=== PATIENT | female | born 1960 ===

== ENCOUNTER 2023-10-23 12:16 | Emergency (ER) | payer MEDICARE, MEDICAID, SELFPAY ==
[2023-10-23 12:21] VITALS: BP 209/102; PULSE 92; O2SAT 98
[2023-10-23 12:26] VITALS: BP 175/71; PULSE 88; RESP 16; O2SAT 100; BMI 29.2
--- NOTE | 2023-10-23 12:53 | ED_ITS ---
HPI - Female Genitourinary General Chief complaint: Urogenital-Female Stated complaint: ? UTI,REFUSING MEDS FROM Time Seen by Provider: 10/23/23 12:28 Source: patient Mode of arrival: EMS History of Present Illness HPI Narrative: This is 8 years old of female sent here by [facility] because she is refusing to take antibiotic for UTI. No reported fever no reported vomiting no reported hypotension no tachycardia. Patient is an admission admit of is on a Section 12 MD elicited complaint: UTI Pertinent past history: recurrent UTIs Onset (ago): day(s) (2) Severity: mild Female Urogenital Radiation: Non-Radiating Urinary symptoms: Dysuria Exacerbating factors: urination Relieving factors: none Associated symptoms: denies other symptoms Related Data Allergies Allergy/AdvReac Type Severity Reaction Status Date / Time Penicillins Allergy Unknown Verified 10/23/23 12:30 Sulfa (Sulfonamide Allergy Unknown Verified 10/23/23 12:30 Antibiotics) Review of Systems 2 Constitutional: Constitutional: Reports no additional constitutional complaints Musculoskeletal: Musculoskeletal: Reports no additional musculoskeletal complaints [facility] Past Medical History [facility] Narrative: psycosis,UTI Social History Social History Smoked in Last 30 Days: No Use of substances other than those prescribed or required for medical reasons: No Advance Directives: No Advance Directives Information Provided: No Do you have a plan to hurt others: No Plan Physical Exam 2 Vital Signs: Vital Signs: Last Vital Signs Temp 98.7 F 10/23/23 15:26 Pulse 107 H 10/23/23 15:26 Resp 17 10/23/23 15:26 BP 188/84 H 10/23/23 15:26 Pulse Ox 99 10/23/23 15:26 O2 Del Method Room Air 10/23/23 15:26 BMI result Body Mass Index 29.2 Const: General: cooperative, comfortable and no acute distress Nutritional Appearance: average body habitus Orientation/consciousness: patient oriented x3 Limitations: no limitations HEENT: Head: Yes normal to inspection General nose exam: Normal external nose present Mouth: Normal oral and palatal mucosa present Neck: Neck: Yes normal visual inspection Chest: Chest palpation & inspection: normal inspection of the chest Resp: Effort & Inspection: normal respiratory effort Auscultation: clear to auscultation bilaterally Cardio: Jugular venous distension: no JVD Rate: regular rate Rhythm: r egular rhythm GI: Inspection: Yes normal to inspection Palpation (GI): Soft to palpation, not firm, nontender and no guarding Percussion: Yes normal to percussion A uscultation: normal bowel sounds Skin: General skin exam: no rashes or lesions noted and elasticity normal L esions: no lesions Rashes: no rashes Neuro: General: patient oriented x3 Extrem: General: Yes normal to inspection Course Reevaluation(s) Reevaluation #1: Urine reviewed with the patient she does have 21-50 WBC but negative nitrate, but she has a normal white count she is afebrile nontoxic not tachycardic. Patient would like wait for the results of the culture before starting antibiotic I think it is reasonable because she had multiple prior UTI she may have an organism resistant. At this point will send her back to me Raymond I discussed the case also with the protective services case worker Génesis,who will follow the urinary culture in the next couple of days. Patient does not meet the criteria for IV antibiotic at this point again afebrile no toxic normal white count no vomiting negative nitrates in the urine she may or not have UTI Time: 14:48 Medical Decision Making Medical Decision Making MDM Narrative: Signed by me reveals a because refuse to take antibiotic for possible UTI will check UA labs VSS Differential Diagnosis Differential Diagnoses: The differential diagnosis associated with the presentation includes Pyelonephritis/UTIs/sepsis Admission/Observation Consideration of admission/observation: Escalation of care including admission/observation considered Lab Data [facility] Lab Attestation statement: I reviewed the patient's lab results. 10/23/23 13:19 10/23/23 13:19 Labs: Lab Results 10/23/23 10/23/23 Range/Units 12:46 13:19 WBC 7.1 (4.8-10.8) X10*3/uL RBC 4.34 (4.20-5.50) X10*6/uL Hgb 13.0 (12.0-16.0) g/dl Hct 36.1 L (37.0-47.0) % MCV 83.2 (80.0-98.0) fL MCH 30.0 (27.0-33.0) pg MCHC 36.0 H (31.0-35.0) g/dl RDW 12.3 (11.0-16.0) % Plt Count 327 (160-400) X10*3/uL MPV 11.1 (9.4-12.3) fL Immature Gran % (Auto) 0.8 H (0.0-0.4) % Neut % (Auto) 65.1 (45-73) % Lymph % (Auto) 23.1 (20-40) % [place] % (Auto) 7.5 (2-11) % Eos % (Auto) 2.4 (0-4) % Baso % (Auto) 1.1 (0-2) % Lymph # (Auto) 1.6 (1.2-4.9) X10*3/uL [place] # (Auto) 0.5 (0.1-1.2) X10*3/uL Eos # (Auto) 0.2 (0.0-0.4) X10*3/uL Baso # (Auto) 0.1 (0.0-0.2) X10*3/uL Abs Immat Gran (auto) 0.06 H (0.00-0.03) X10*3/uL Absolute Neuts (auto) 4.6 (2.0-8.3) x10*3/uL Absolute Nucleated RBC 0.020 H (0.0-0.012) X10*3/uL Nucleated RBC % (auto) 0.3 H (0.0-0.2) /100WBC Smear Tech's Comments VERIFIED Sodium 143 (135-145) mmol/L Potassium 4.4 (3.3-5.1) mmol/L Chloride 107 (96-108) mmol/L Carbon Dioxide 26 (22-29) mmol/L Anion Gap 14 (12-20) BUN 29 H (9-16) mg/dL Creatinine 0.74 (0.5-1.4) mg/dL Estim Creat Clear Calc 81.2 Estimated GFR > 60 Random Glucose 122 H (60-115) mg/dL Calcium 10.1 (8.4-10.2) mg/dL Urine Color Yellow Urine Appearance Clear Urine pH 8.5 (5.0-9.0) Ur Specific [place] 1.010 (1.005-1.025) Urine Protein Negative (Neg-Trace) mg/dL Urine Glucose (UA) Negative (Negative) mg/dL Urine Ketones Negative (Negative) mg/dL Urine Blood Trace H (Negative) Urine Nitrite Negative (Negative) Ur Leukocyte Esterase Large (3+) H (Negative) Urine RBC 3-5 H (0-2) /HPF Urine WBC 21-50 H (0-5) /HPF Ur Squamous Epith Cells 0-2 (0-2) /HPF Urine Bacteria Trace (None Seen) Hyaline Casts 0-2 (0-2) /LPF Discharge Plan Discharge Clinical Impression: Dysuria Patient Disposition: Xfer Psychiatric Hosp Instructions: Dysuria (ED) Additional Instructions: We discussed with you the possibility of empiric antibiotic therapy for possible UTI the urine today shows a few white cell but you have a normal white count you do not have any fever you do not have any evidence of systemic infection you have no fever. You want wait for the culture which I think is very reasonable, we sent urinary culture and will [place] to follow-up the culture, also our case me check will follow-up with the culture if culture positive we will send antibiotic for you Print Language: Swedish
[2023-10-23 13:00] LABS: Appearance Urine Clear; Color Urine Yellow; Glucose Urine UA Negative (Negative); Leukocyte Esterase Urine Large (3+) (Negative); Nitrite Urine Negative (Negative); PH 8.5 (5.0-9.0); UMIC TRIGGER UACC YES; Urine Blood Trace (Negative); Urine Ketones Negative (Negative); Urine Protein Negative (Neg-Trace)
[2023-10-23 13:05] LABS: Bacteria Urine Trace (None Seen); Hyaline Casts Urine 0-2 /LPF (0-2); Squamous Epithelial Cell Urine 0-2 /HPF (0-2); UACC Culture Trigger YES; WBC Urine 21-50 /HPF (0-5)
--- NOTE | 2023-10-23 13:19 | PC.NURSE ---
Patient from [facility], +UTI on labwork from [facility], refusing abx there, only wants probiotics, 1:[address], patient changed over into hospital attire by library acquisitions technician.
[2023-10-23 13:31] LABS: Basophils Absolute Auto 0.1 X10*3/uL (0.0-0.2); Basophils Percent Auto 1.1 % (0-2); Imm Gran Abs Auto 0.06 X10*3/uL (0.00-0.03); Imm Gran Pct Auto 0.8 % (0.0-0.4); MANUAL DIFF FLAG SCAN; PLT CLUMP 1; Red Blood Count 4.34 X10*6/uL (4.20-5.50); SCAN SMEAR FLAG 1
[2023-10-23 13:33] LABS: Eosinophils Absolute Auto 0.2 X10*3/uL (0.0-0.4); Eosinophils Percent Auto 2.4 % (0-4); Hematocrit 36.1 % (37.0-47.0); Lymphocytes Absolute Auto 1.6 X10*3/uL (1.2-4.9); Lymphocytes Percent Auto 23.1 % (20-40); Mean Corpuscular Volume 83.2 fL (80.0-98.0); Monocytes Absolute Auto 0.5 X10*3/uL (0.1-1.2); Monocytes Percent Auto 7.5 % (2-11); NRBC Pct Auto 0.3 /100WBC (0.0-0.2); Neutrophils Absolute Auto 4.6 x10*3/uL (2.0-8.3); Neutrophils Percent Auto 65.1 % (45-73); Red Cell Distribution Width 12.3 % (11.0-16.0)
[2023-10-23 13:42] LABS: Anion Gap 14 (12-20); Blood Urea Nitrogen 29 mg/dL (9-16); Calcium 10.1 mg/dL (8.4-10.2); Carbon Dioxide 26 mmol/L (22-29); Chloride 107 mmol/L (96-108); Creatinine Clr Calc Pharmacy 81.2; Estimated Glomerular Filt Rate > 60; Glucose Random 122 mg/dL (60-115); Potassium 4.4 mmol/L (3.3-5.1); Sodium 143 mmol/L (135-145)
[2023-10-23 14:15] LABS: Mean Platelet Volume 11.1 fL (9.4-12.3); Platelet Count 327 X10*3/uL (160-400); SLIDE REVIEW VERIFIED; White Blood Count 7.1 X10*3/uL (4.8-10.8)
[2023-10-23 14:45] VITALS: TEMP 36.8
[2023-10-23 15:26] VITALS: BP 188/84; PULSE 107; RESP 17; TEMP 37.1; O2SAT 99
--- NOTE | 2023-10-26 10:10 | MHC.CM.ED ---
Patient was in ER on Sunday 10/22. ER d/c was faxed to [facility] at that time. Dr Albrecht requesting urine culture and sensitivities be sent to [facility] when available. Faxed today by T/W.
== END 2023-10-23 20:42 ==
PROVIDERS: Emergency Provider Emergency Medicine
DX: R30.0 Dysuria (principal); Z79.899 Other long term (current) drug therapy; Z87.440 Personal history of urinary (tract) infections
CPT/HCPCS: 36415; 80048; 81001; 81003; 85025; 87086; 87088; 87186; 99283; 99284